=== PATIENT | female | born 1990 | race Caucasian/White ===

== ENCOUNTER 2016-06-24 09:28 | Emergency (ER) | payer OTHER ==
[2016-06-24 10:02] LABS: BASO % 0.4 % (0.1-1.2); EOS # 0.1 10_X3_uL (0.0-0.4); EOS % 0.9 % (0.7-5.8); GRAN # 5.2 10_X3_uL (1.6-6.1); GRAN % 66.9 % (34.0-71.1); HEMATOCRIT 41.4 % (34-45); HEMOGLOBIN 13.9 g/dL (11.2-15.7); LYMPH % 26.1 % (19.3-51.7); MEAN CORPUSCULAR HEMOGLOBIN 27.4 pg (27.0-33.0); MEAN CORPUSCULAR HGB CONC 33.6 g/dL (32.0-36.0); MEAN CORPUSCULAR VOLUME 81.5 fL (79-95); MEAN PLATELET VOLUME 10.1 fl (7.5-11.5); MONO # 0.5 10_X3_uL (0.2-0.9); MONO % 5.7 % (4.7-12.5); PLATELET COUNT 342 x10_3/uL (182-369); RED BLOOD COUNT 5.08 x10_6/uL (3.9-5.2); RED CELL DISTRIBUTION WIDTH 14.8 % (11.7-14.4); WHITE BLOOD COUNT 7.8 x10_3/uL (4.0-10.0)
[2016-06-24 10:19] LABS: BLOOD UREA NITROGEN 9 mg/dL (7-18); CALCIUM 8.9 mg/dL (8.7-10.7); CARBON DIOXIDE 23 mmol/L (21-32); CREATINE KINASE 86 U/L (21-215); CREATININE 0.6 mg/dL (0.6-1.3); GLUCOSE,RANDOM 105 mg/dL (70-99); POTASSIUM 3.6 mmol/L (3.5-5.1); SODIUM 140 mmol/L (136-145)
== END 2016-06-24 11:29 | disposition home or self-care (01) ==
LOC: ER 09:28
PROVIDERS: Family Medicine
DX: R07.89 Other chest pain (principal); F41.9 Anxiety disorder, unspecified; I10 Essential (primary) hypertension; Z88.1 Allergy status to other antibiotic agents
CPT/HCPCS: 36415; 71010; 71020; 80048; 81025; 82550; 82553; 85025; 93005; 99070; 99285-25